=== PATIENT | male | born 1975 | race Caucasian/White ===

== ENCOUNTER 2017-08-02 00:01 | Emergency (ER) | payer MEDICAID ==
[~2017-08-02] VITALS: Ht 167.6 cm; Wt 86.0 kg
[~2017-08-02 00:01] MED LIST: RITA20TA PO
[2017-08-02 00:03] VITALS: BP 140/95; PULSE 73; RESP 16; TEMP 98; O2SAT 99
[2017-08-02] MEDS ORDERED: DOXY100C PO (01:10)
--- NOTE | 2017-08-02 01:13 | PD ---
HPI Chief Complaint: Cold / Flu Symptoms Time Seen by Provider: 01:00 Travel History International Travel<30 days: No Contact w/Intl Traveler<30days: No Traveled to known affect area: No History of Present Illness HPI 41-year-old white male presents to emergency department with complaints of chest congestion. He states that he has had a cold for the past week. This has consisted of runny nose, sinus pressure, sore throat and cough. Since that the sinus and sore throat issues have improved but he still has some congestion in his chest with colored sputum. He denies any nausea vomiting. No abdominal pain or diarrhea. No dysuria or frequency. The patient also is requesting that a medical release form be signed so he can perform a physical agility test for the [employer] tomorrow. 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 Reported Meds & Prescriptions Reported Meds & Active Scripts Active Doxycycline Hyclate 100 Mg Cap 100 Mg PO BID Reported Ritalin (Methylphenidate HCl) 20 Mg Tab 1 Tab PO QID Review of Systems Except as stated in HPI: all other systems reviewed are Neg Physical Exam Narrative GENERAL: Well-developed, well-nourished in no acute distress. Nontoxic appearing. HEAD: Normocephalic, atraumatic. EYES: Pupils equal round and reactive. Extraocular motions intact. No scleral icterus. No injection or drainage. ENT: TMs clear without erythema. The external auditory canals clear. Nose: clear . Posterior pharynx is pink and moist. No tonsillar edema or exudate. Uvula midline. Airway patent. NECK: Trachea midline.Supple, nontender, moves head freely. No central bony tenderness or spasm. CARDIOVASCULAR: Regular rate and rhythm without murmurs, gallops, or rubs. RESPIRATORY: Clear to auscultation. Breath sounds equal bilaterally. No wheezes , rales, or rhonchi. GASTROINTESTINAL: Abdomen soft, non-tender, nondistended. No hepato-splenomegaly , or palpable masses. No guarding. EXTREMITIES: No clubbing, cyanosis, or edema. No joint tenderness, effusion, or edema noted. BACK: Nontender without deformity or crepitance. No flank tenderness. Data Data Last Documented VS Vital Signs Date Time Temp Pulse Resp B/P (MAP) Pulse Ox O2 Delivery O2 Flow Rate FiO2 08/02/17 00:03 98.0 73 16 140/95 (110) 99 MDM Medical Decision Making Medical Screen Exam Complete: Yes Emergency Medical Condition: Yes Medical Record Reviewed: Yes Differential Diagnosis MDM: High Differential diagnoses: Pneumonia, bronchitis, URI, asthma, RAD, legionnaire's disease, SARS, ARDS, influenza, bronchiolitis, RSV,PE,CHF Narrative Course This is URI I informed the patient that I would not be willing to sign off for his physical agility test. The patient takes Ritalin for ADD and has noted elevated blood pressure here in the ER. He is advised to follow-up with his doctor for medical clearance. Diagnosis Primary Impression: URI (upper respiratory infection) Qualified Codes: J06.9 - Acute upper respiratory infection, unspecified Patient Instructions: General Instructions Additional Instructions: Rest. Increase fluids. Tylenol and Advil. Robitussin-DM. Doxycycline,. Followup with your Dr. in one week. Return to the ER for any problems. Med/Other Pt SpecificInfo: Prescription(s) given Scripts Doxycycline Hyclate (Doxycycline Hyclate) 100 Mg Cap 100 MG PO BID for Infection, #14 CAP 0 Refills Prov: Aisha Lea MD 08/02/17 Disposition: 01 DISCHARGE HOME Condition: Stable Kwabena Wong Aug 02, 2017 01:13
== END 2017-08-02 01:28 | disposition home or self-care (01) ==
LOC: NEPD 00:01
DX: J06.9 Acute upper respiratory infection, unspecified (principal)
CPT/HCPCS: 99283

== ENCOUNTER 2017-09-19 22:29 | Emergency (ER) | payer MEDICAID ==
[~2017-09-19] VITALS: Ht 167.6 cm; Wt 86.5 kg
[~2017-09-19 22:29] MED LIST changes: +DOXY100C PO
[2017-09-19 22:43] VITALS: BP 138/70; PULSE 96; RESP 16; TEMP 99.6; O2SAT 97
[2017-09-19] MEDS ORDERED: RITA20TA PO (23:03)
--- NOTE | 2017-09-19 23:10 | PD ---
HPI Chief Complaint: Cold / Flu Symptoms Time Seen by Provider: 22:52 Travel History International Travel<30 days: No Contact w/Intl Traveler<30days: No Traveled to known affect area: No History of Present Illness HPI 41yo M with PMH of ADHD presents to the ED with c/o throat pain, right ear pain for 1 day. States pain goes from throat to right ear. [place] warm at home. Denies any drooling, hoarse voice, chest pain, sob, cough, n/v, abdominal pain, focal weakness or numbness. 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 Reported Meds & Prescriptions Reported Meds & Active Scripts Active Reported Ritalin IR (Methylphenidate HCl) 20 Mg Tab 20 Mg PO TIDAC Review of Systems Except as stated in HPI: all other systems reviewed are Neg Physical Exam Narrative GENERAL: 41yo M not in distress. SKIN: Focused skin assessment warm/dry. HEAD: Atraumatic. Normocephalic. EYES: Pupils equal and round. No scleral icterus. No injection or drainage. ENT: Throat: +Erythematous. Uvula midline. No exudate. Right TM: Erythematous but no bulging. NECK: +TTP right cervical lymphadenopathy. CARDIOVASCULAR: Regular rate and rhythm. No murmur appreciated. RESPIRATORY: No accessory muscle use. Clear to auscultation. Breath sounds equal bilaterally. GASTROINTESTINAL: Abdomen soft, non-tender, nondistended. MUSCULOSKELETAL: No obvious deformities. No clubbing. No cyanosis. No edema. NEUROLOGICAL: Awake and alert. No obvious cranial nerve deficits. Motor grossly within normal limits. Normal speech. PSYCHIATRIC: Appropriate mood and affect; insight and judgment normal. Data Data Last Documented VS Vital Signs Date Time Temp Pulse Resp B/P (MAP) Pulse Ox O2 Delivery O2 Flow Rate FiO2 09/19/17 22:43 99.6 96 16 138/70 (92) 97 Orders Orders Group A Rapid Strep Screen (09/19/17 23:01) Acetaminophen 650 Mg/20 Ml Liq (Tylenol (09/19/17 23:30) Penicillin G Benzathine Inj (Bicillin L- (09/19/17 23:45) MDM Medical Decision Making Medical Screen Exam Complete: Yes Emergency Medical Condition: Yes Differential Diagnosis Strep pharyngitis vs. viral pharyngitis Narrative Course 41yo well appearing male with throat pain that is radiating to right ear. No tripoding. No drooling. Mild erythema on exam. Will give acetaminophen liquid. Will check for strep. Group A strep positive. Offered bicillin or oral antibiotic and pt prefers bicillin. Pt given bicillin L-A 1.2 million units IM. Return precautions given. Diagnosis Primary Impression: Strep pharyngitis Patient Instructions: General Instructions Departure Forms: Tests/Procedures Additional Instructions: Please follow up with your primary care physician in 3-7 days. Return to the ED if symptoms worsen. Med/Other Pt SpecificInfo: Prescription(s) given Scripts Acetaminophen Liq (Acetaminophen Extra Strength Liq) 500 Mg/15 Ml Soln 500 MG PO Q4-6H Y for PAIN SCALE 1 TO 4 for 5 Days, ML 0 Refills Prov: Georgette Toussaint DO 09/19/17 Disposition: 01 DISCHARGE HOME Condition: Stable Georgette Toussaint DO Sep 19, 2017 23:10
[2017-09-19] MEDS ORDERED: ACETAMINOPHEN 650 MG/20.3 ML UDC PO ONE (23:30)
[2017-09-19] MEDS ORDERED: ACET500L PO (23:44)
[2017-09-19] MEDS ORDERED: PENICILLIN G BENZATHINE 1,200,000 UNITS/2 ML SYRINGE IM ONE (23:45)
[2017-09-20] MEDS ORDERED: PROMETHAZINE INJ 25 MG/ML VIAL IM ONE (00:15)
[2017-09-20 00:41] VITALS: RESP 18
== END 2017-09-20 00:44 | disposition home or self-care (01) ==
LOC: PHEFT 22:29
DX: J02.0 Streptococcal pharyngitis (principal); B95.0 Streptococcus, group A, as the cause of diseases classified elsewhere
CPT/HCPCS: 87880; 96372; 99284; J0561